=== PATIENT | male | born 1980 | race Caucasian/White ===

== ENCOUNTER 2019-06-17 21:03 | Emergency (ER) | payer SELFPAY ==
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
[2019-06-17 21:15] VITALS: BP 146/93
[2019-06-17] MEDS ORDERED: HYDROcodone/ACETAMIN 5-325 MG* 1 TAB PO ONE ×2 (21:16→22:03)
[2019-06-17] MEDS ORDERED: Tetan/Diph/Pertus SYR(Tdap)* 0.5 ML SYR(BOOSTRIX) use SYR contains LATEX IM ONE (21:36)
[2019-06-17] MEDS ORDERED: Cephalexin CAP* 500 MG PO ONE (21:37)
== END 2019-06-17 22:12 | disposition home or self-care (01) ==
LOC: UCCORT 21:03
DX: T23.261A Burn of second degree of back of right hand, initial encounter (principal); Z23 Encounter for immunization; T31.0 Burns involving less than 10% of body surface; X10.2XXA Contact with fats and cooking oils, initial encounter; Y93.G3 Activity, cooking and baking; Y92.9 Unspecified place or not applicable
CPT/HCPCS: 90471; 90715; 99203; A9270-GY; G0463